=== PATIENT | female | born 1980 | race Caucasian/White ===

== ENCOUNTER 2019-03-28 10:28 | Emergency (ER) | payer BC ==
[2019-03-28 10:34] VITALS: BP 130/83
--- NOTE | 2019-03-28 10:46 | ED ---
Back Pain - HPI Summary HPI Summary: This patient is a 38 year old female presenting to [facility] with a chief complaint of back pain. She states it started mildly around last Thursday and has gotten worse over the last week. She reports taking a [employer] fitness class prior to the onset of pain. She states movement, inspiration, and coughing, aggravates the pain starting today. She states the pain has been getting worse since this morning. She says the pain is in her lumbar spine and that is radiates to her flanks. She rates her pain 8/10 in severity. She states she has taken Tylenol and Ibuprofen for her pain. - History of Current Complaint Chief Complaint: EDBackInjuryPain Stated Complaint: BACK PAIN Time Seen by Provider: 03/28/19 10:39 Hx Obtained From: Patient Hx Last Menstrual Period: 06/02/2012 Onset/Duration: Sudden Onset, Lasting Weeks Onset/Duration: Started Weeks Ago, Still Present Pain Intensity: 8 Pain Scale Used: 0-10 Numeric - Allergies/Home Medications Allergies/Adverse Reactions: Allergies Allergy/AdvReac Type Severity Reaction Status Date / Time cefuroxime Allergy Severe Rash And Verified 03/28/19 10:35 Itching Home Medications: Home Medications Medical Marijuana 0.25 tab PO DAILY 03/28/19 [History Confirmed 03/28/19] PMH/Surg Hx/FS Hx/Imm Hx Endocrine/Hematology History: Reports: Hx Anemia - HX OF Denies: Hx Diabetes, Hx Thyroid Disease Cardiovascular History: Denies: Hx Hypertension Respiratory History: Reports: Hx Chronic Obstructive Pulmonary Disease (COPD) - CROHNS Denies: Hx Asthma GI History: Reports: Hx Crohn's Disease, Hx Irritable Bowel, Hx Ulcer Musculoskeletal History: Denies: Hx Osteoporosis Sensory History: Denies: Hx Contacts or Glasses, Hx Hearing Aid Opthamlomology History: Denies: Hx Contacts or Glasses - Surgical History Surgery Procedure, Year, and Place: Six surgeries to remove large bowel d/t Crohns. UTERINE POLYP REMOVED. MULTIPLE COLONOSCOPIES Hx Anesthesia Reactions: No Infectious Disease History: No Infectious Disease History: Reports: Hx Shingles Denies: Hx Hepatitis, Hx Human Immunodeficiency Virus (HIV), Traveled Outside the [place] in Last 30 Days - Family History Known Family History: Negative: Cardiac Disease - Social History Alcohol Use: Occasionally Alcohol Amount: 1-2 GLASSES OF WINE DAILY Substance Use Type: Reports: None Hx Tobacco Use: No Smoking Status (MU): Former Smoker Amount Used/How Often: SOCIALLY OFF AND ON X 4 YEARS Have You Smoked in the Last Year: No Review of Systems Negative: Fever Positive: Other - Back pain All Other Systems Reviewed And Are Negative: Yes Physical Exam - Summary Physical Exam Summary: Appearance: The patient is well-nourished in no acute distress and in no acute pain. Skin: The skin is warm and dry, and skin color reflects adequate perfusion. Irritation chan from cupping on her back. HEENT: The head is normocephalic and atraumatic. The pupils are equal and reactive. The conjunctivae are clear and without drainage. Nares are patent and without drainage. Mouth reveals moist mucous membranes, and the throat is without erythema and exudate. The external ears are intact. The ear canals are patent and without drainage. The tympanic membranes are intact. Neck: The neck is supple with full range of motion and non-tender. There are no carotid bruits. There is no neck vein distension. Respiratory: Chest is non-tender. Lungs are clear to auscultation and breath sounds are symmetrical and equal. Cardiovascular: Heart is regular rate and rhythm. There is no murmur or rub auscultated. There is no peripheral edema and pulses are symmetrical and equal. Abdomen: The abdomen is soft and non-tender. There are normal bowel sounds heard in all four quadrants and there is no organomegaly palpated. Musculoskeletal: Extremities are non-tender with full range of motion. There is good capillary refill. There is no peripheral edema or calf tenderness elicited. Tenderness on right posterior lower ribs and the posterior scapula line. Neurological: Patient is alert and oriented to person, place and time. The patient has symmetrical motor strength in all four extremities. Cranial nerves are grossly intact. Deep tendon reflexes are symmetrical and equal in all four extremities. Psychiatric: The patient has an appropriate affect and does not exhibit any anxiety or depression. Triage Information Reviewed: Yes Vital Signs On Initial Exam: Initial Vitals Temp Pulse Resp BP Pulse Ox 98.6 F 71 14 130/83 99 03/28/19 10:29 03/28/19 10:29 03/28/19 10:29 03/28/19 10:29 03/28/19 10:29 Vital Signs Reviewed: Yes Procedures - Sedation Patient Received Moderate/Deep Sedation with Procedure: No Diagnostics - Vital Signs Vital Signs Temp Pulse Resp BP Pulse Ox 03/28/19 10:29 98.6 F 71 14 130/83 99 - Laboratory Lab Statement: Any lab studies that have been ordered have been reviewed, and results considered in the medical decision making process. - Radiology CXR Radiology Interpretation Completed By: Radiologist Summary of Radiographic Findings: Stigmata of probable obstructive lung disease. No acute pulmonary or cardiac process evident. ED Provider has reviewed this report. Back Pain Course/Dx - Course Course Of Treatment: Ms. Roman had a musculoskeletal chest pain. When I saw her. She was nontoxic in appearance with stable vitals. It was reproducible It was over the ribs in the back and around the side and a chest x-ray was obtained and unremarkable. I gave her a small prescription of Ativan to use as a muscle relaxer at night and tramadol to use for pain. She does not want to take ibuprofen because of her history of Crohn's disease. - Diagnoses Provider Diagnoses: Low back strain Discharge ED - Sign-Out/Discharge Documenting (check all that apply): Patient Departure - Discharge - Discharge Plan Condition: Stable Disposition: HOME Prescriptions: LORazepam TAB(*) [Ativan TAB(*)] 1 mg PO BEDTIME PRN #10 tab MDD 4 PRN Reason: Pain traMADol TAB* [Ultram*] 50 mg PO Q6HR PRN #20 tab MDD 4 PRN Reason: Pain Patient Education Materials: Low Back Strain (ED) Referrals: Enedina Rm MD [Primary Care Provider] - Additional Instructions: Take OTC Ibuprofen. Follow up with your primary care provider. - Billing Disposition and Condition Condition: STABLE Disposition: Home - Attestation Statements Document Initiated by Alberto: Yes Documenting Scribe: Jerald Muñoz Provider For Whom Alberto is Documenting (Include Credential): Nate Keith MD Scribe Attestation: Jerald Redman scribed for Nate Keith MD on 03/28/19 at 1806. Scribe Documentation Reviewed: Yes Provider Attestation: The documentation as recorded by the Jerald sutherland accurately reflects the service I personally performed and the decisions made by me, Nate Keith MD Status of Scribe Document: Viewed
--- OUTSIDE RECORDS SUMMARY | 2019-03-28 10:52 | XMS REPORT | Continuity of Care Document ---
:1980 External Reference #:[id number] Author Name Enedina Rm M.D. Address [address] [place] [address] Care Team Providers Name Role Phone Enedina Rm - Family Medicine Care Team Information Radio Program Director [phone] Rudy Chen MD - Gastroenterology Care Team Information Radio Program Director Problems Active Problems Provider Date Crohn's disease Ho Cardozo M.D. Onset: 06/17/2010 Social History Type Date Description Comments Sex Unknown Tobacco Use Start: Unknown Never Smoked Cigarettes Smoking Status Reviewed: 02/16/19 Never Smoked Cigarettes ETOH Use Currently consumes alcohol 10 a week. Tobacco Use Start: Unknown Patient has never smoked Allergies, Adverse Reactions, Alerts Active Allergies Reaction Severity Comments Date Ceftin 07/17/2004 Medications Active Medications SIG Qnty Indications Ordering Provider Date Ondansetron dissolve 1 -2 30tabs Enedina Castillo 02/16/2019 4mg tablets by mouth Lisa Rm Tablets Dispers every 8 hours as needed for nausea Hydrocodone 1 by mouth three 30tabs K91.1 Enedina Castillo 02/16/2019 Bitartrate/Acetamin times a day Lisa Rm ophen 5-325mg Tablets Valtrex take two by mouth 20tabs Enedina Castillo 02/07/2017 1gm Tablets now, repeat in 12 Lisa Rm hours for outbreaks. Remicaid Q 6 Weeks Rhea mann 09/07/2006 Lisa Mirza Natura drainable pouch 6Boxes Rhea mann 07/25/2005 Convatec Lisa Mirza 1 3/4in/ 45mm ref# [id number] Colostomy Wafers Use as Directed 75units Rhea mann 07/25/2005 [facility] #- [id number] Durahesive Wafers use as directed 60units Rhea mann 11/06/2004 #[id number] Lisa Mirza Combitex Barrier use as directed 100units Rhea mann 11/06/2004 Wipes #[id number] Lisa Mirza Canasa 4 x month Unknown 1000mg Suppository Apri 1 by mouth every Unknown 0.15-30mg-mcg day Tablets Medications Administered in Office Medication SIG Qnty Indications Ordering Provider Date TB Intradermal Test Rhea Champion, 01/05/2007 Injection MRajat TB Intradermal Test Rhea Champion, 01/28/2006 Injection Lisa TB Intradermal Test Gee Gao M.D. 01/17/2005 Injection TB Intradermal Test Clarke Brooks 12/27/2004 Injection Immunizations CPT Code Status Date Vaccine Reaction Lot # [id number] Given 02/26/2016 Influenza Vac, Quadrivalent, [place] [address] Given 04/29/2011 Meningococcal Conjugate no reaction noted [id number] Vaccine,Serogroups For Intramuscular Use 49213 Given 04/29/2011 Tdap Tetanus, W Pertussis no reaction noted [id number] 24975 Given 12/27/2004 Td Immunization, For Use In Individuals 7 Years Or Older 20982 Given 01/11/1998 Hepatitis B Immunization, -19 Years 94651 Given 08/14/1997 Hepatitis B Immunization, [place]-19 Years 20763 Given 07/11/1997 Hepatitis B Immunization, -19 Years 91811 Given 01/06/1995 Td Immunization, For Use In Individuals 7 Years Or Older 45096 Given 10/25/1994 DTaP Immunization 18135 Given 12/16/1991 MMR Virus Immunization 10132 Given 01/25/1985 (IPV) Inactive Poliovirus Vaccine 04912 Given 02/26/1981 (IPV) Inactive Poliovirus Vaccine 71049 Given 02/26/1981 DTaP Immunization 05842 Given 02/11/1981 MMR Virus Immunization 09174 Given 05/13/1980 DTaP Immunization 24521 Given 03/13/1980 (IPV) Inactive Poliovirus Vaccine 79455 Given 03/13/1980 DTaP Immunization 92861 Given 01/22/1980 (IPV) Inactive Poliovirus Vaccine 38148 Given 01/22/1980 DTaP Immunization Vital Signs Date Vital Result Comment 02/16/2019 10:20am BP Systolic 110 mmHg BP Diastolic 78 mmHg Heart Rate 66 /min Body Temperature 98.6 F Respiratory Rate 16 /min Height 64 inches 5'4" Weight 138.00 lb BMI (Body Mass Index) 23.7 kg/m2 01/01/2018 11:19am BP Systolic 112 mmHg BP Diastolic 70 mmHg Heart Rate 70 /min Body Temperature 98.6 F Height 64 inches 5'4" measured 07/07/16 Results Test Date Facility Test Result H/L Range Note CBC Electronic Fma 02/16/2019 Malick Osei([facility]) WBC 8.0 x10^3/UL 4.0- 10.0 RBC 3.94 x10^6/UL 3.93-6.00 HGB 13.1 g/dL 12.0-17.0 HCT 40 % 35-50 MCV 101.0 fL High 80.0-95.0 MCH 33.2 pg High 25.6-32.2 MCHC 32.9 g/dL 32.2-36.0 RDW-CV 12.8 % 11.6-14.4 PLT 311 x10^3/UL 163-400 MPV 10.0 fL 9.4-12.4 Alejandro# 5.14 x10^3/UL 1.56-6.13 Lymph# 2.08 x10^3/UL 1.18-3.74 Sierra# 0.68 x10^3/UL 0.24-0.82 Eos # 0.1 x10^3/UL 0.0-0.5 Baso # 0.05 x10^3/UL 0.01-0.08 Alejandro% 64.2 % 34.0-70.0 Lymph % 26.0 % 20.0-52.0 Sierra% 8.5 % 5.0-12.0 Eos% 0.6 % Low 0.7-7.0 Baso% 0.6 % 0.1-1.2 Laboratory test finding 02/16/2019 Malick Osei(a) TSH 2.24 mIU/L 0.50-6.00 Comprehensive Metabolic 02/16/2019 Teresa Farnaz(fma) Sodium 137 mEq/L 134-149 Prof Potassium 4.3 mEq/L 3.6-5.5 Chloride 105 mEq/L 94-112 Carbon Dioxide 24 mEq/L 21-32 Glucose 84 mg/dL 70-105 BUN 8 mg/dL 6-26 Creatinine 0.8 mg/dL 0.6-1.4 BUN/Creat Ratio 10.0 CALC 8.0-36.0 Calcium 9.1 mg/dL 8.6-10.2 Total Protein 6.9 g/dL 6.4-8.3 Albumin 4.1 g/dL 3.8-5.5 Globulin 2.8 g/dL 2.0-4.8 A/G Ratio 1.5 CALC 0.6-2.3 Alk. Phosphatase 38 U/L 30-110 Alt (SGPT) 18 U/L 7-35 Ast (Sgot) 19 U/L 5-34 Total Bilirubin 0.9 mg/dL 0.2-1.3 GFR Non- >60 ml/min/1.73m^ >=60 GFR >60 ml/min/1.73m^ >=60 Lipid Profile 02/16/2019 Teresa Farnaz(fma) Cholesterol 227 mg/dL High 120-200 Triglycerides 63 mg/dL 30-200 HDL Cholesterol 91 mg/dL High 30-85 LDL (Calculated) 123 CALC 0-129 VLDL Cholesterol 13 mg/dL 0-50 HDL Risk Factor 2.5 CALC 0.0-4.4 Laboratory test finding 10/05/2018 [facility] Surgical Pathology SEE RESULT BELOW 1, 2 1 [id number] 2 SEE RESULT BELOW Name: PAOLA PETERSON : [address]: Trino Camargo DO Acct: [id number] Unit: [id number] AGE: 37 Location: ENDOCEC Re10/05/18 SEX: F Status: DEP REF SPEC: [id number] DOMINIQUE: 10/05/18-[address] [facility] [address]: Trino Camargo DO REQ: [id number] RECD: 10/05/18 STATUS: FEI JOHNSON DR: Enedina Rm MD _ ORDERED: LEVEL 4/2 COMMENTS: [id number] FINAL DIAGNOSIS 1. Distal esophagus, biopsy: -- Gastroesophageal transition zone mucosa with mild chronic inflammation and nonspecific reactive changes. -- Specific features of reflux esophagitis are not seen. -- No goblet cell/intestinal metaplasia or dysplasia identified. 2. Colon, rectal stump, biopsies: -- Polypoid large intestinal mucosal fragments with focal acute superficial colitis and prominent lymphoid aggregates. -- No dysplasia or adenomatous change identified. CLINICAL HISTORY Crohn???s PRE-OPERATIVE DIAGNOSIS 2) Rule out dysplasia POST-OPERATIVE DIAGNOSIS EGD: esophagus - mild gastroesophageal junction variable biopsy; gastric - normal; duodenum - normal to proximal jejunum; rectal stump: mild erythema biopsy to rule out dysplasia; ileoscopy: 20 cm - normal CONTINUED ON NEXT PAGE DEPARTMENT OF PATHOLOGY, [address] [place] [address] Lamonte Oliveira M.D. Director [facility] # [id number] RUN DATE: 10/06/18 [facility] LAB LIVE PAGE 2 Patient: PAOLA PETERSON [id number] (Continued) GROSS DESCRIPTION (Continued) GROSS DESCRIPTION 1. The specimen is received in formalin labeled, Distal Esophagus Biopsies , and consists of two white red irregular to polypoid soft tissue fragment measuring 0.3 x 0.3 x 0.2 cm and 0.4 x 0.3 x 0.2 cm, which are entirely submitted in one cassette. 2. The specimen is received in formalin labeled, Rectal Stump Biopsies, and consists of a 0.8 x 0.5 x 0.2 cm aggregate of denise-pink irregular to polypoid soft tissue fragments, which is entirely submitted in one cassette. Signed by and Reported on: Lamonte Oliveira MD 06/26 1156 END OF REPORT DEPARTMENT OF PATHOLOGY, [address] [place] [address] Lamonte Oliveira M.D. Director [facility] # [id number] Procedures Date Code Description Status 10/15/2018 [id number] Mammogram Completed Medical Devices Description No Information Available Encounters Description No Information Available Assessments Date Code Description Provider 02/16/2019 Z00.00 Encounter for general adult medical Enedina Rm M.D. examination without abnormal findings 02/16/2019 Z93.2 Ileostomy status Enedina Rm M.D. 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 Plan of Treatment 02/16/2019 - Enedina Rm M.D.Z00.00 Encounter for general adult medical examination without abnormal findingsComments:You are in excellent general health. I recommend regular physical exams with attention to good nutrition and exercise, eye exams every other year, and dental exams twice yearly. Goals: 2 fresh fruits daily3 helpings of fresh green and multicolored vegetablesEat from the whole color spectrum. 40-60 Oz water dailyMOVE YOUR BODY. Bodies were made to be moved. exercise 30 minutes at least 4-5 times weekly Stable. Continue present meds. catracho's protocol.Z93.2 Ileostomy statusComments: stableagree with removal of the rectal hmbmnL02.9 Herpesviral infection, tnariiaalypZ94.1 Postgastric surgery syndromesNew Medication:Hydrocodone Bitartrate/Acetaminophen 5-325 mg - 1 by mouth three times a dayComments:will prescribe zofran and lortabAllComments:Medication Management Patient Understands medications she's taking? Yes No Are there Barriers to Adherence? Yes No Has the patient been asked about herbal supplements and therapies, and OTC meds? Yes No Functional Status Description No Information Available Mental Status Description No Information Available Referrals Description No Information Available
[2019-03-28] MEDS ORDERED: LORazepam TAB(*) 1 MG PO ONE (10:53)
== END 2019-03-28 12:21 | disposition home or self-care (01) ==
LOC: ED 10:28
DX: S39.012A Strain of muscle, fascia and tendon of lower back, initial encounter (principal); X50.9XXA Other and unspecified overexertion or strenuous movements or postures, initial encounter; Y92.9 Unspecified place or not applicable; D64.9 Anemia, unspecified; J44.9 Chronic obstructive pulmonary disease, unspecified; K50.90 Crohn's disease, unspecified, without complications; Z87.891 Personal history of nicotine dependence; Z79.899 Other long term (current) drug therapy; Z88.1 Allergy status to other antibiotic agents
CPT/HCPCS: 71046; 99282; A9270-GY